=== PATIENT | male | born 1940 | race Caucasian/White ===

== ENCOUNTER 2023-05-10 13:36 | Emergency (ER) | payer MEDICARE ==
[~2023-05-10] VITALS: Ht 160 cm; Wt 81.6 kg
[2023-05-10 13:46] VITALS: BP 101/63; PULSE 64; RESP 18; TEMP 97.9; O2SAT 96
[2023-05-10 14:24] LABS: BASOPHIL % 0.4 % (0.0-0.2); EOSINOPHIL # 0.1 10^3/uL (0.0-0.2); EOSINOPHIL % 0.7 % (0.0-5.0); HEMATOCRIT(ML) 46.6 % (37.0-53.0); HEMOGLOBIN 15.8 g/dL (13.9-16.3); LYMPHOCYTES # 1.39 10^3/uL1 (1.0-4.8); LYMPHOCYTES % 14.4 % (24.0-44.0); MEAN CORP HGB CONCENTRATION 33.9 g/dL (33-36.5); MEAN CORP VOLUME 94.5 fL (78-100); MONOCYTES # 0.8 10^3/uL (0.3-0.8); MONOCYTES % 8.3 % (5.0-12.0); NEUTROPHIL # 7.3 10^3/uL (1.8-7.7); PLATELET COUNT 252 10^3/uL (150-400); RED BLOOD CELL 4.93 10^6/uL (4.50-5.90); WHITE BLOOD CELL 9.7 10^3/uL (4.5-11.0)
[2023-05-10 14:26] LABS: +ADD MANUAL DIFF(NO CHRG) NO
[2023-05-10 14:40] LABS: ALBUMIN(ML) 3.3 g/dL (3.4-5.0); ALBUMIN/GLOBULIN RATIO 0.785; ANION GAP 13.4; CALCIUM 9.2 mg/dL (8.4-10.5); CARBON DIOXIDE 26.7 mmol/L (20.0-32); CREATININE SERUM 1.13 mg/dL (0.59-1.40); EST GFR, NON-AA 62.3 (>/=60); POTASSIUM 4.1 mmol/L (3.6-5.2)
[2023-05-10 15:03] LABS: BILIRUBIN,URINE NEGATIVE (NEGATIVE); LEUKOCYTE ESTERASE ,URINE NEGATIVE (NEGATIVE); NITRATE,URINE NEGATIVE (NEGATIVE); PH,URINE 5.5 (4.5-8.0); UROBILINOGEN,URINE 0.2 E.U./dL (0.2)
[2023-05-10 15:06] LABS: APPEARANCE,URINE CLEAR; UA COLOR YELLOW
[2023-05-10 15:18] VITALS: BP 96/70; PULSE 71; RESP 18; O2SAT 92
== END 2023-05-10 15:55 | disposition home or self-care (01) ==
LOC: ER 13:36
DX: M54.50 Low back pain, unspecified (principal); Z86.19 Personal history of other infectious and parasitic diseases; Z88.0 Allergy status to penicillin
CPT/HCPCS: 36415; 74176; 80053; 81003; 83690; 85025; 99284